=== PATIENT | female | born 1965 | race Caucasian/White ===

== ENCOUNTER → 2023-06-20 06:41 | Outpatient (REF) | payer BC, SELFPAY | LOC: HWRAD 06:41 | PROVIDERS: ATTENDING PHYSICIAN Family Medicine | DX: R16.0 Hepatomegaly, not elsewhere classified (principal) | CPT/HCPCS: 76700 ==

== ENCOUNTER → 2024-01-16 15:04 | Outpatient (REF) | payer BC, SELFPAY | LOC: WDC 15:04 | PROVIDERS: ATTENDING PHYSICIAN Family Medicine | DX: Z12.31 Encounter for screening mammogram for malignant neoplasm of breast (principal) | CPT/HCPCS: 77063; 77067 ==

== ENCOUNTER → 2024-05-28 07:25 | Outpatient (REF) | payer BC, SELFPAY | LOC: RAD 07:25 | PROVIDERS: ATTENDING PHYSICIAN Family Medicine; OTHER PHYSICIAN Internal Medicine Gastroenterology | DX: R10.10 Upper abdominal pain, unspecified (principal) | CPT/HCPCS: 78227; A9537; J2805 ==

== ENCOUNTER 2024-12-07 18:07 | Inpatient (IN) | payer BC, SELFPAY ==
[2024-12-07 13:09] VITALS: BP 182/107
[2024-12-07 13:26] LABS: Hematocrit 32.9 % (37.0-47.0); Hemoglobin 10.5 g/dL (12.0-16.0); Mean Corp Hgb Conc. 31.9 g/dL (33.0-37.0); Mean Corpuscular Volume 74.1 fL (81.0-99.0); Nucleated Red Blood Cells % 0 %; Platelet Count 409 10^3/uL (130-400); Red Cell Dist. Width 16.4 % (11.5-14.5)
[2024-12-07 13:41] LABS: ALT (SGPT) 31 U/L (0-35); AST (SGOT) 48 U/L (14-36); Albumin 4.5 g/dl (3.5-5.0); Alkaline Phosphatase 131 U/L (38-126); Blood Urea Nitrogen 11 mg/dl (7-17); Calcium 8.6 mg/dl (8.4-10.2); Carbon Dioxide 19 mmol/L (22-30); Chloride 94 mmol/L (98-107); Glucose 96 mg/dl (70-99); Lipase 200 U/L (23-300); Potassium 4.1 mmol/L (3.5-5.1); Sodium 126 mmol/L (135-145); Total Protein 7.6 g/dl (6.3-8.2); eGFR > 60.00
[2024-12-07 13:52] LABS: Troponin I < 0.012 ng/ml
--- NOTE | 2024-12-07 14:10 | ED.GENMED ---
History of Present Illness
General
Chief Complaint: Chest Pain
Time Seen by Provider: 12/07/24 14:10
History of Present Illness
History of Present Illness:
FOCUSED PAST MEDICAL HISTORY
- Alcoholism, has had PE in the past
REVIEW OF OLD RECORDS
- The patient was seen here 2008 with a head injury
Note:
CHIEF COMPLAINT(S)
Chest pain and shortness of breath.
HISTORY OF PRESENT ILLNESS
The patient is a 59-year-old female with a history of alcohol use disorder who presented to the emergency room with complaints of chest pain and difficulty breathing. The chest pain, described as a 'pressure,' began approximately three hours prior
to the visit. The patient also reports feeling confused, which she attributes to her current state. She describes a significant relapse in alcohol use over the past month, consuming a large quantity of alcohol daily, including beer and wine. On the
day of presentation, she consumed three glasses of wine.
She denies similar episodes in the past, aside from anxiety attacks, and asserts that this episode is more severe. The patient is currently experiencing these symptoms, more notably the feeling of breathlessness, despite normal oxygen saturation
levels. She also mentions swelling in her legs which she manages with support stockings and acknowledges having been diagnosed with lymphedema. There is no diagnosis of heart failure.
The patients medical history includes a hospitalization in 2003 for a pulmonary issue involving lung surgery and a subsequent diagnosis of a blood clot. She notes that this current episode does not resemble her previous experience with blood clots
or collapsed lung.
ADDITIONAL HISTORY OBTAINED FROM SOURCES OTHER THAN THE PATIENT
According to the ER team, initial tests including EKG and cardiac biomarkers returned normal. However, the patients sodium level was noted to be low, at 126 mmol/L.
PAST MEDICAL AND SURIGICAL HISTORY
- Alcohol use disorder, currently relapsed.
- Lymphedema.
- History of blood clot and lung surgery (2003).
CHRONIC MEDICAL CONDITIONS SIGNIFICANTLY AFFECTING CARE
- Alcohol use disorder.
- Lymphedema.
SOCIAL DETERMINANTS AFFECTING HEALTH
The patient reports a relapse in alcohol use, consuming large amounts daily for the past month.
SOCIAL HISTORY
Alcohol: The patient is a recovering alcoholic with a recent relapse, consuming significant amounts of alcohol daily.
REVIEW OF SYSTEMS
- Cardiovascular: Chest pain described as pressure, no history of heart failure.
- Respiratory: Difficulty breathing, normal oxygen saturation, history of lung issues.
- Neurological: Confusion, attributed to alcohol use relapse.
- Extremities: Leg swelling, managed with support hose.
PHYSICAL EXAM
General: Alert, no acute distress. Initial blood pressure is hypertensive
Skin: Warm, dry.
Head: Normocephalic, atraumatic.
Neck: Supple, trachea midline.
Eye, ears, nose, mouth and throat: Oral mucosa moist.
Cardiovascular: Normal peripheral perfusion, No edema.
Respiratory: Respirations are non-labored.
Gastrointestinal: Abdomen nondistended.
Back: Normal range of motion, Normal alignment.
Musculoskeletal: She is wearing compression stockings to the lower extremities and has evidence of lymphedema
Neurological: Alert and oriented to person, place, time, and situation, No focal neurological deficit observed.
Psychiatric: Cooperative, but appears somewhat anxious
PROBLEM LIST
Acute Problems:
- Chest pain
- Shortness of breath
- Low sodium level (Hyponatremia)
Chronic Problems:
- Alcohol use disorder
- Lymphedema
PLAN
- Administer Valium for anxiety.
- Obtain a urine sample to analyze chemical composition related to low sodium levels.
- Initiate IV fluids for potential dehydration.
- Repeat cardiac blood tests.
- Monitor cardiac status.
- Consider a CT scan of the lungs due to history and current symptoms.
- Encourage the patient to provide a urine sample for further evaluation.
DIFFERENTIAL DIAGNOSIS
The Differential Diagnosis includes, in no particular order and is not limited to:
- Acute coronary syndrome
- Pulmonary embolism
- Alcohol withdrawal syndrome
- Heart failure
- Hyponatremia-induced confusion
- Anxiety disorder
- Pneumonia
- Hyperventilation syndrome
- Panic attack
- Gastroesophageal reflux disease (GERD)
RADIOLOGY
- CTA obtained and is negative for PE
EKG
- Sinus 92, leftward axis deviation, no acute ST abnormality, no change from 06/22/2004
LABS
- White count 9.4, hemoglobin 10.5, platelets 409, sodium 126, bicarb 19, initial troponin negative
UPDATE
-SUMMARY OF ENCOUNTER
The patient, a 59-year-old female with a history of alcohol use disorder, presented to the emergency department with chest pain and shortness of breath. Upon evaluation, lab results indicated low sodium levels at 126 mmol/L, which may contribute to
the patients feelings of confusion. The patient reported increased alcohol consumption, which can lead to hyponatremia. Normal cardiac tests and a CT scan excluded the presence of any acute cardiac events or blood clots.
DISPOSITION
Admit.
ASSESSMENT
The patients low sodium levels are likely due to excessive alcohol consumption, leading to confusion and necessitating hospital admission for further management of hyponatremia.
PLAN
Plan to admit the patient for further evaluation and management of low sodium levels. Continue monitoring and provide appropriate treatment for hyponatremia.
INDEPENDENT REVIEW OF LABS AND INTERPRETATION OF TESTS
My independent review of cardiac tests is normal. My independent review of sodium levels is low at 126 mmol/L, indicating hyponatremia.
MEDICAL DECISION MAKING
-Complexity of Data Reviewed: Chronic conditions affecting care include alcohol use disorder and lymphedema. Differential diagnosis includes acute coronary syndrome, pulmonary embolism, alcohol withdrawal syndrome, hyponatremia-induced confusion,
anxiety disorder, and other potential causes of confusion and shortness of breath.
-Data:
Category 1: Clinical information obtained from an independent historian.
Category 3: Discussion of management with other physician regarding admission for low sodium management.
-Risk: Consideration of Admission/Observation due to low sodium levels and associated confusion related to excessive alcohol consumption.
DIAGNOSIS
Hyponatremia (ICD-10: E87.1). Alcohol use disorder, currently relapsed (ICD-10: F10.20).
Beer potomania
Phy Exam
Physical Exam
Physical Exam:
See HPI
Scores
Heart Score for Chest Pain Patients
STEMI patient?: Not applicable
Course
Orders/Labs/Results
Orders:
Orders
12/07/24 13:04
ECG [Electrocardiogram (*1)] Urgent
Reason for Study: Chest Pain
EKG- Treatment ONCE
12/07/24 13:15
Alcohol Urgent
Complete Blood Count/With Diff Urgent
Comprehensive Metabolic Panel Urgent
Lipase Urgent
Serum Osmolality Urgent
Comment: ADD ON
Troponin I Urgent
12/07/24 14:10
Add On- LAB Urgent
Tests Added?: alcohol
12/07/24 14:11
Add On- LAB Urgent
Tests Added?: osm
12/07/24 14:19
EKG- Treatment ONCE
diazePAM [Valium Injection] 5 mg IV NOW STA
12/07/24 14:20
CT Chest PE Study Urgent
Comment:
Reason For Exam: cp sob prior PE
12/07/24 14:23
0.9% Sodium Chloride 500 ml [Nss] 500 ml IV BOLUS
12/07/24 14:36
Osmolality, Random Urine Urgent
Date Specimen was Collected: 12/07/24
Time Specimen was Collected: 14:34
Urine Sodium Urgent
Date Specimen was Collected: 12/07/24
Time Specimen was Collected: 14:34
12/07/24 15:28
Diphenhydramine [Benadryl] 25 mg IV NOW STA
Ketorolac [Toradol] 15 mg IV NOW STA
Metoclopramide [Reglan] 10 mg IV NOW STA
12/07/24 16:15
Electrocardiogram (*1) Urgent
Reason for Study: Chest Pain
12/07/24 16:17
Troponin I Urgent
12/07/24 17:04
diazePAM [Valium Injection] 5 mg IV NOW STA
Abnormal Lab Results
12/07/24 12/07/24
13:15 14:36
Hgb 10.5 L g/dL
(12.0-16.0)
Hct 32.9 L %
(37.0-47.0)
MCV 74.1 L fL
(81.0-99.0)
MCH 23.6 L pg
(27.0-31.0)
MCHC 31.9 L g/dL
(33.0-37.0)
RDW 16.4 H %
(11.5-14.5)
Plt Count 409 H 10^3/uL
(130-400)
Absolute Neuts (auto) 7.9 H 10^3/uL
(1.4-6.5)
Absolute Lymphs (auto) 1.0 L 10^3/uL
(1.2-3.4)
Neutrophils % 84.2 H %
(42.2-75.2)
Lymphocytes % 10.6 L %
(20.5-51.1)
Sodium 126 L mmol/L
(135-145)
Chloride 94 L mmol/L
(98-107)
Carbon Dioxide 19 L mmol/L
(22-30)
AST 48 H U/L
(14-36)
Alkaline Phosphatase 131 H U/L
(38-126)
Urine Osmolality 77 L mOsm/kg
(300-900)
Urine Sodium 12 L mmol/L
(30-90)
12/07/24 13:15
12/07/24 13:15
Vital Signs
Initial and Last Documented VS:
Initial Vital Signs
Temp Pulse Resp BP Pulse Ox
36.4 C 84 18 182/107 97
12/07/24 13:09 12/07/24 13:09 12/07/24 13:09 12/07/24 13:09 12/07/24 13:09
Last Documented Vital Signs
Temp Pulse Resp BP Pulse Ox
37.2 C 92 19 149/89 94
12/07/24 14:26 12/07/24 15:15 12/07/24 15:15 12/07/24 14:26 12/07/24 15:15
*Pulse Oximetry
SaO2: 97
Oxygen Mode of Delivery: Room air
Patient hypoxic: no
*Critical Care Note
Total Time (30-74mins, 75-104mins- exclusive of procedures): Not Applicable
ED Attending Note
-
Portions of this chart may have been created with voice recognition software.� Occasional wrong word or��sound alike� substitutions may have occurred due to the inherent limitations of voice recognition software.
Discharge Plan
Departure
Referrals:
Indiana Olsen MD [Family Provider, Family Practice]
Interventions
Interventions:
*Risk Screen - Suicide Last Done: 12/07/24 13:09
*General Assessment Last Done: 12/07/24 13:09
*Neglect/Abuse Screening Last Done: 12/07/24 14:29
*ED- Fall Risk Assessment Last Done: 12/07/24 14:29
*ED COVID-19 Vaccine History Last Done: 12/07/24 13:09
*ED Influenza Vaccine History Last Done: 12/07/24 13:09
Discharge Date and Time
Print Language: SOUTH AFR[place]
[2024-12-07 14:19] VITALS: BMI 47.5
[2024-12-07 14:26] VITALS: BP 149/89
[2024-12-07] MEDS: NSS 500 IV (14:37)
[2024-12-07] MEDS: VALIUM INJECTION 5 MG IV ×2 (14:37→17:19)
[2024-12-07] MEDS: REGLAN 10 MG IV (16:11)
[2024-12-07] MEDS: TORADOL 15 MG IV (16:11)
[2024-12-07] MEDS: BENADRYL 25 MG IV (16:11)
[2024-12-07 16:29] VITALS: BP 155/82
[2024-12-07 17:03] LABS: Troponin I < 0.012 ng/ml
--- NOTE | 2024-12-07 17:23 | HPS.HSE ---
Family Physician
-
Family Physician: Indiana Olsen MD
Chief Complaint
-
Chest pain
History of Present Illness
Patient is 59 years old with history of alcohol use who presented to the ER with chest pain and shortness of breath.
Patient with history of daily alcohol use, currently she consume 2 cases of beer daily (24 Bottles), started having chest pain which she described as chest pressure, midsternal, no radiation, 3 hours before ER visit, also feeling confused.
Patient with significant alcohol use relapse for the last 1 month.
Patient denies any recent fever or chills, no recent cardiac history, no smoking.
Father had coronary artery disease but he was heavy smoking, mother diagnosed with congestive heart failure.
Patient denies any abdominal pain, no nausea or vomiting, no constipation or diarrhea.
Patient noted to have hyponatremia at 126,, negative troponin x 2.
CTA chest showed:
Mild to moderate respiratory motion artifact limiting evaluation of the inferior segmental and subsegmental pulmonary arteries. Given this limitation, there is no evidence for pulmonary embolism.
Calcified mass within the medial aspect of the right lower lobe of the lung, as described above. This is without significant interval change in size dating back to CT examination 2006, reassuring that this is a benign calcified pulmonary mass.
There are 2 splenic artery aneurysms in the left upper quadrant. The largest of these has diameter of 2.1 cm. Follow-up CT angiography of the abdomen with attention to the splenic artery is recommended in one year.
Focal pleural plaque involving the posterior aspect of the right lower hemithorax, slightly increasing since examination in 2006. With minimal enlargement over a timeframe of 18 years, this very likely represents a benign pleural plaque.
Patient will be admitted under hospitalist service.
Medical History
Past Medical History
Past Medical History: Reports Hypothyroidism, Psychiatric and Other
Additional Past Medical History:
- Alcohol use disorder.
- Lymphedema.
- History of blood clot and lung surgery (2003).
Past Surgical History: Reports Other
Additional Past Surgical History:
lung surgery (2003).
Gastric bypass surgery 2002
Social History
Tobacco: Non-smoker
Alcohol: Daily
Living: Alone
Family History
Family History: CAD (Father) and Other (Congestive heart failure-mother)
Allergies / Home Medications
Allergies reflects when Allergies were last updated in [employer].
Home Medications with original date entered in [employer]
Allergy/Medication List:
Allergies
Allergy/AdvReac Type Severity Reaction Status Date / Time
Sulfa (Sulfonamide Allergy Unknown Verified 12/07/24 13:12
Antibiotics)
sulfamethoxazole Allergy Unknown Verified 12/07/24 13:12
trimethoprim Allergy Unknown Verified 12/07/24 13:12
Home medications:
Zoloft 100 mg daily.
Abilify 10 mg daily.
Levothyroxine 88 mcg daily.
Multivitamins daily
Review of Systems
-
A 12 point ROS was completed and negative except as noted: Yes
Constitutional: Reports Fatigue; Denies Fever, Weight Gain, Weight Loss or Sleep Disturbance
EENT: Denies Tearing, Sore Throat, Mouth Pain, Mouth Swelling or Runny Nose
Respiratory: Reports Trouble Breathing; Denies Cough or Hemoptysis
Cardiac: Reports Chest Pain; Denies Diaphoresis, Palpitations or Syncope
Abdomen/GI: Denies Abdominal Pain, Nausea, Vomiting, Diarrhea, Constipated, Bloody Stools or Black Stools
: Denies Dysuria, Frequency, Flank Pain, Incontinence, Difficulty Voiding, Urgency, Bleeding or Dark Urine
Musculoskeletal: Denies Joint Pain, Joint Swelling, Muscle Pain, Muscle Stiffness or Edema
Skin: Denies Itching or Rash
Neurological: Denies Dizzy, Headache, Weakness or Numbness
Endocrine: Denies Polyuria, Polydipsia or Temp Intolerance
Hematologic/Lymphatic: Denies Bleeding, Swollen Glands or Bruising
Psych: Reports Calm; Denies Depression, Anxiety or Panic Disorder
Physical Exam
Vital Signs
Vital Signs
Temp Pulse Resp BP Pulse Ox
99 F 92 19 149/89 94
12/07/24 14:26 12/07/24 15:15 12/07/24 15:15 12/07/24 14:26 12/07/24 15:15
Physical Exam
General: Well Developed, Comfortable, Appears in Distress and Good Appetite; No Pain, Chills or Sweats
HEENT: NormoCephalic, Moist mucous membranes, Atraumatic, Good Dentition, PERRLA, Nose Appears Normal and Ears Appear Normal
Respiratory: Clear
Cardiac: S1/S2 and Regular Rhythm
Breast: Deferred by me
GI: Soft, Non Tender, Non Distended and Normal Bowel Sounds
Genito-urinary: Deferred by me
Musculoskeletal: No Clubbing, No Cyanosis and No Edema
Skin: Warm; No Rash, Jaundice, Ulcers, Lesions or Decubitus Ulcers
Neuro: Awake, Alert, Oriented, AO x 3, No Motor Deficits, Nonfocal/grossly intact, Cranial Nerves Intact and Other (Fine tremor)
Hematologic/Lymphatic: No Lymphadenopathy
Psych: Calm
Laboratory Results
-
12/07/24 13:15
12/07/24 13:15
Laboratory Results
Total Bilirubin 0.5 mg/dl (0.2-1.3) 12/07/24 13:15
AST 48 U/L (14-36) H 12/07/24 13:15
ALT 31 U/L (0-35) 12/07/24 13:15
Alkaline Phosphatase 131 U/L (38-126) H 12/07/24 13:15
Troponin I < 0.012 ng/ml 12/07/24 16:17
Lipase 200 U/L (23-300) 12/07/24 13:15
Data Reviewed
-
Diagnostic Radiology: Report Reviewed by me
CT Scan: Report Reviewed by me
Medical Tests (Nuc Med, Echo, EKG etc): Report Reviewed by me
Lab Data: Labs Reviewed by me
Old Records: Reviewed
Impression/Plan
-
Impression:
Patient is 59 years old with history of alcohol use who presented to the ER with chest pain and shortness of breath.
Patient with history of daily alcohol use, currently she consume 2 cases of beer daily (24 Bottles), started having chest pain which she described as chest pressure, midsternal, no radiation, 3 hours before ER visit, also feeling confused. Patient
with significant alcohol abuse history, relapsed for the last 1 month. no cardiac history, no smoking.
Father had coronary artery disease but he was heavy smoking, mother diagnosed with congestive heart failure.
Patient noted to have hyponatremia at 126,, negative troponin x 2.
CTA chest showed:
Mild to moderate respiratory motion artifact limiting evaluation of the inferior segmental and subsegmental pulmonary arteries. Given this limitation, there is no evidence for pulmonary embolism.
Calcified mass within the medial aspect of the right lower lobe of the lung, as described above. This is without significant interval change in size dating back to CT examination 2006, reassuring that this is a benign calcified pulmonary mass.
There are 2 splenic artery aneurysms in the left upper quadrant. The largest of these has diameter of 2.1 cm. Follow-up CT angiography of the abdomen with attention to the splenic artery is recommended in one year.
Focal pleural plaque involving the posterior aspect of the right lower hemithorax, slightly increasing since examination in 2006. With minimal enlargement over a timeframe of 18 years, this very likely represents a benign pleural plaque.
Patient admitted for hyponatremia, chest pain, alcohol withdrawal
Assessment/plan:
Chest pain R/O ACS
Patient presented to the ER with chest pain/shortness of breath.
Troponin came back at <0.012
EKG done in the ER shows no acute ischemic change
Will start baby aspirin, hold statin for elevated LFTs
Trend troponin
Check fasting lipid panel
Cardiology consult.
Alcohol abuse/withdrawal
Patient admitted drinking 2 dozens of beer daily.
Alcohol level 46
Fine tremors on physical exam.
IV fluid.
Thiamine/folic acid.
Ativan as needed.
Valium taper
Acute metabolic encephalopathy
UA pending.
Could be contributed by hyponatremia.
Less likely Warnicke encephalopathy
Started on thiamine
Hyponatremia
Possible beer Potomania
Fluid restriction.
Normal saline.
Repeat BMP in am
History of hypothyroidism
Continue levothyroxine
History of depression.
Continue Zoloft
Transaminitis
Alcohol pattern
Repeat LFTs in a.m.
Consider right upper quadrant ultrasound
Microcytic anemia
Monitor hemoglobin
Mild metabolic acidosis
Repeat lab in AM.
IV fluid
CODE STATUS: Full code
DVT prophylaxis: Lovenox
Diet: Regular diet-water restriction
Disposition: Admit
Total time spent on today's encounter was 75 minutes which included time spent in counseling the patient/family regarding diagnosis and treatment plan as listed above, goals of care, and symptom management. Case was discussed with nursing staff,
specialists, and care coordinators/case management. All labs and imaging personally reviewed by me. Remainder the time spent in detailed review of previous records, lab data, imaging, and other medical provider documentation.
--- NOTE | 2024-12-07 18:18 | CM ---
CM reviewed chart and met with pt bedside in ED. Pt lives alone in basement apartment.
Independent in ADLs, personal care and ambulation at baseline. No assistive devices.
Confirms prescription coverage.
No hx VN or SNF
PCP: Indiana Olsen
Pharmacy: [address]
Anticipate discharge home, CM will continue to follow for any discharge planning needs.
[2024-12-07 18:30] VITALS: BP 140/81
--- NOTE | 2024-12-07 19:35 | PTCARENOTE ---
Patient arrived to unit via stretcher and walked into room. AAOx3. No c/o pain or discomfort. Oriented to unit. Call [employer] within reach.
[2024-12-07 20:55] LABS: Troponin I < 0.012 ng/ml
--- NOTE | 2024-12-07 20:59 | PTCARENOTE ---
Rn flower stripper- Patient's admission assessment completed remotely via phone.
[2024-12-07] MEDS: LOVENOX 40 MG SC (21:24)
[2024-12-07] MEDS: FOLVITE 1 MG PO (21:24)
[2024-12-07] MEDS: PROTONIX 40 MG PO (21:24)
[2024-12-07] MEDS: NSS 1000 IV (21:26)
[2024-12-07] MEDS: ATIVAN 1 MG PO (22:18)
[2024-12-07 23:07] VITALS: BP 139/83
[2024-12-07] MEDS: THIAMINE INJECTION 200 MG IV (23:22)
[2024-12-08 03:14] VITALS: BP 148/69
[2024-12-08 05:12] VITALS: BMI 45.0
[2024-12-08 05:14] LABS: Hematocrit 31.0 % (37.0-47.0); Hemoglobin 9.8 g/dL (12.0-16.0); Mean Corp Hgb Conc. 31.6 g/dL (33.0-37.0); Mean Corpuscular Volume 75.1 fL (81.0-99.0); Platelet Count 367 10^3/uL (130-400); Red Cell Dist. Width 16.7 % (11.5-14.5)
[2024-12-08 05:29] LABS: ALT (SGPT) 26 U/L (0-35); AST (SGOT) 38 U/L (14-36); Albumin 3.7 g/dl (3.5-5.0); Alkaline Phosphatase 126 U/L (38-126); Blood Urea Nitrogen 8 mg/dl (7-17); Calcium 8.6 mg/dl (8.4-10.2); Carbon Dioxide 27 mmol/L (22-30); Chloride 107 mmol/L (98-107); Estimated Creatinine Clearance 122 ml/min; GGTP < 10 U/L (12-43); Glucose 91 mg/dl (70-99); Magnesium 2.0 mg/dl (1.6-2.3); Potassium 3.9 mmol/L (3.5-5.1); Sodium 138 mmol/L (135-145); Total Protein 6.4 g/dl (6.3-8.2); Very Low Density Lipoprotein 14 mg/dl (0-30); eGFR > 60.00
[2024-12-08 05:40] LABS: HDL Cholesterol 112 mg/dl; LDL Cholesterol, Calculated 31 mg/dl
[2024-12-08 05:47] LABS: Troponin I < 0.012 ng/ml
[2024-12-08] MEDS: SYNTHROID 88 MCG PO (05:56)
[2024-12-08 05:57] LABS: TSH 7.74 uIU/ml (0.47-4.68)
[2024-12-08 07:00] VITALS: BP 151/78
[2024-12-08 07:41] LABS: Urine Character Clear (Clear)
[2024-12-08] MEDS: ABILIFY 10 MG PO (08:05)
[2024-12-08] MEDS: ZOLOFT 100 MG PO (08:06)
[2024-12-08] MEDS: THIAMINE INJECTION 200 MG IV ×2 (08:06→15:50)
[2024-12-08] MEDS: PROTONIX 40 MG PO (08:06)
[2024-12-08] MEDS: FOLVITE 1 MG PO (08:06)
[2024-12-08] MEDS: NSS 1000 IV (08:07)
[2024-12-08 08:10] LABS: Urine Red Blood Cell 0-2 /HPF (0-2)
[2024-12-08 08:13] LABS: Urine Urothelial Cell 0-2 /LPF (FEW)
--- NOTE | 2024-12-08 09:06 | CON.CAR ---
Addendum entered and electronically signed by Joaquim Neumann MD 12/08/24 14:58:
I saw and examined the patient.
The Joint Terminal Attack Controller's note was reviewed and I agree with the note.
Comment:
GEN: No distress, awake, Ox3
HEENT: supple, anicteric, mmm
LUNGS: CTA, no wheezes/rales
CV: Reg, S1/S2, 1/6 syst LSB, no gallop
ABD: soft, BS+, NT/ND
EXT: No edema
NEURO: Gross non-focal
SKIN: No rash
Plan:
59-year-old female with past medical history of alcohol abuse, lymphedema, previous pulmonary embolism, obesity gastric bypass surgery presents with chest pains and shortness of breath. Patient states she had some chest pains yesterday while at
home with some dyspnea on exertion. The pain was mild to moderate in severity and she became actually send came to the emergency room. EKG was overall unremarkable and cardiac troponins were normal. proBNP was mildly elevated at 1190. She
admitts to drinking approximately [address] scan of the chest had no clear pulmonary embolism.
The etiology of her chest pains remains unclear. She was also found to be significantly hyponatremic with this has improved. We will start with an echocardiogram to evaluate her LV and RV function.
Her proBNP is mildly elevated and is possible she has some mild volume overload/acute heart failure with preserved ejection fraction. We will give her a dose of Lasix 20 mg IV today and follow her clinically.
Would consider consider stress testing as outpatient.
Will need to follow her sodium with IV Lasix.
We had a lengthy discussion about the importance of stopping alcohol abuse.
Of note, she also has a microcytic anemia. Will defer to primary team regarding this.
Original Note:
Consultation
Consultation Request
Date/Time Consultation Requested: 12/07/2024 at 1941
Date/Time Consultation Performed: 12/08/2024 at 0935
Requesting Provider: Dr. Pa
Performing Provider: Dr. Neumann
Reason for Consultation: Chest pain, SOB
Medical History
-
History of Present Illness:
Patient came to the ER yesterday with chest pain, SOB and anxiety and was admitted with hyponatremia and cardiology is now consulted. Patient says that for 3 hours prior to coming to the ER yesterday she had chest pressure and SOB. Patient reports
she had a similar episode a month ago that was evaluated at [facility] when she was discharged to home from their ER. Patient felt that her episode yesterday was more intense and lasted longer than so she came to [facility] ER. Patient was found to be
hyponatremic. ECG without acute ischemic change and her troponin has been undetectable. Patient says she does not follow with a cement mason helper, but she was seen by Dr. Hinkle here in 2003 when she was admitted with recurrent right pleural effusion
and had pleurodesis. Patient also had a PE at that time and was on warfarin. Patient was not able to recall a lot of those details. Patient later had gastric bypass in 2007 and then abdominoplasty, but reports that she has gained back at least 100
lbs of the 200 lbs that she lost back in 2007. Patient has had issues with ETOH use disorder, but was sober for years until she relapsed a month ago. She is now drinking a case of beer (24) a day plus wine, but denies illicit drug use. She is still
working, but reports missing work and having to leave work early due to intermittent chest pressure and DEAN over the last few weeks, but denies orthopnea or increased LE edema. No resting chest pain.
PMH:
EtOH use disorder, severe
Obese s/p gastric bypass surgery 2007
Lymphedema
h/o PE and possible pulmonary infarct treated with warfarin 05/2004
Recurrent right-sided pleural effusion leading to pleurodesis in 2004
Past Medical History
Past Medical History: Other (In HPI)
Past Surgical History: and Other (Gastric bypass 2007, pleurodesis for recurrent PTX)
Social History
Tobacco: Non-Smoker
Alcohol: Other (Patient reports previous severe EtOH use disorder, but was sober and relapsed within the last month)
Drug: None (Denies illicit drug use)
Personal:
Living: Alone
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
Family History
Family History: CAD (Father with PA in his 50s) and Cancer (Daughter with thyroid cancer)
Allergies / Home Medications
Allergy/AdvReac Type Severity Reaction Status Date / Time
Sulfa (Sulfonamide Allergy Unknown Verified 12/07/24 13:12
Antibiotics)
sulfamethoxazole Allergy Unknown Verified 12/07/24 13:12
trimethoprim Allergy Unknown Verified 12/07/24 13:12
�Medication �Instructions �Recorded �Confirmed �Type
Bariatric Melts Bariatric surgery 12/08/24 History
Bariatric Vitamins Bariatric surgery 12/08/24 History
Iron Supplement 12/08/24 History
Magnesium Supplement 12/08/24 History
Tumeric Supplement 12/08/24 History
milk thistle Supplement 12/08/24 History
Review of Systems
-
History Source: Patient
All other systems: Negative unless noted
Physical Exam
Vital Signs
Temp Pulse Resp BP Pulse Ox
98.1 F 73 18 151/78 97
12/08/24 07:00 12/08/24 07:00 12/08/24 07:00 12/08/24 07:00 12/08/24 07:00
GEN: NAD, AAO x 3
HEENT: EOMI, MMM
LUNGS: RA. CTA B/L, no wheeze
CV: Reg, S1/S2, 1/6 syst LSB
ABD: soft, BS+, NT, ND
EXT: +2 nonpitting B/L LE edema
NEURO: Gross non-focal
SKIN: No rash
Lab Results
12/08/24 05:08
12/08/24 04:57
Troponin I < 0.012 ng/ml 12/08/24 05:05
Xyr-O-Fvtecsbtpnq Pept 1190 pg/ml 12/08/24 04:57
Impression / Plan
-
PCP: Dr. Indiana Olsen at [facility] [place]
Cardiology: None prior to admission
Impression:
Admitted with chest pain and hyponatremia 12/07/2024
Hyponatremia
Chest pain
Elevated proBNP
EtOH use disorder, severe
Obese s/p gastric bypass surgery 2007
Lymphedema
h/o PE treated with warfarin 05/2004
Recurrent right-sided pleural effusion leading to pleurodesis in 2004
Persantine nuclear stress test 03/30/2004: Small, fixed apical and anteroseptal defect that is most likely soft tissue attenuation, EF 71%
Echo 10/19/2003: Technically very limited due to body habitus, EF 60%, no significant valvular disease
Echo 12/08/2024: Report pending
Plan:
-Patient came to the ER yesterday with chest pain, SOB and anxiety and was admitted with hyponatremia and cardiology is now consulted. Patient says that for 3 hours prior to coming to the ER yesterday she had chest pressure and SOB. Patient
reports she had a similar episode a month ago that was evaluated at [facility] when she was discharged to home from their ER. Patient felt that her episode yesterday was more intense and lasted longer than so she came to [facility] ER. Patient was found to be
hyponatremic. ECG without acute ischemic change and her troponin has been undetectable. Patient says she does not follow with a cement mason helper, but she was seen by Dr. Hinkle here in 2004 when she was admitted with recurrent right pleural effusion
and had pleurodesis. Patient also had a PE at that time and was on warfarin. Patient was not able to recall a lot of those details. Patient later had gastric bypass in 2007 and then abdominoplasty, but reports that she has gained back at least 100
lbs of the 200 lbs that she lost back in 2007. Patient has had issues with ETOH use disorder, but was sober for years until she relapsed a month ago. She is now drinking a case of beer (24) a day plus wine, but denies illicit drug use. She is still
working, but reports missing work and having to leave work early due to intermittent chest pressure and DEAN over the last few weeks, but denies orthopnea or increased LE edema. No resting chest pain.
-ECG reviewed by me is SR without acute ST changes
-Troponin serially undetectable
-Patient reporting 3+ hours of chest pain yesterday along with symptoms of intermittent chest pain and DEAN with activity over the weeks prior to admission. Given stable ECG and troponin we will check echo and plan on outpatient ischemic evaluation.
-proBNP is elevated at 1190, but CT chest without obvious pulmonary edema. Will try dose of Lasix 40 mg IV x 1 now, ordered by me.
-Check echo, ordered by me await results
-Patient was previously followed by Dr. Hinkle of the other cardiology group in 2003 when she was admitted with recurrent pleural effusion, pleurodesis and had PE.
[2024-12-08] MEDS: LOW STRENGTH ASPIRIN 81 MG PO (09:49)
[2024-12-08] MEDS: ATARAX 25 MG PO ×2 (09:54→21:51)
[2024-12-08] MEDS: LOW STRENGTH ASPIRIN PO (09:54)
[2024-12-08] MEDS: LASIX 40 MG IV (11:34)
[2024-12-08 11:55] VITALS: BP 170/92
[2024-12-08 13:00] LABS: Troponin I < 0.012 ng/ml
--- NOTE | 2024-12-08 13:01 | W.PN.HOSP.TC ---
Today's Communication/Plan
-
Echo pending
Assessment / Plan
Assessment / Plan
Impression:
Patient is 59 years old with history of alcohol use who presented to the ER with chest pain and shortness of breath.
Patient with history of daily alcohol use, currently she consume 2 cases of beer daily (24 Bottles), started having chest pain which she described as chest pressure, midsternal, no radiation, 3 hours before ER visit, also feeling confused. Patient
with significant alcohol abuse history, relapsed for the last 1 month. no cardiac history, no smoking.
Father had coronary artery disease but he was heavy smoking, mother diagnosed with congestive heart failure.
Patient noted to have hyponatremia at 126,, negative troponin x 2.
CTA chest showed:
Mild to moderate respiratory motion artifact limiting evaluation of the inferior segmental and subsegmental pulmonary arteries. Given this limitation, there is no evidence for pulmonary embolism.
Calcified mass within the medial aspect of the right lower lobe of the lung, as described above. This is without significant interval change in size dating back to CT examination 2006, reassuring that this is a benign calcified pulmonary mass.
There are 2 splenic artery aneurysms in the left upper quadrant. The largest of these has diameter of 2.1 cm. Follow-up CT angiography of the abdomen with attention to the splenic artery is recommended in one year.
Focal pleural plaque involving the posterior aspect of the right lower hemithorax, slightly increasing since examination in 2006. With minimal enlargement over a timeframe of 18 years, this very likely represents a benign pleural plaque.
Patient admitted for hyponatremia, chest pain, alcohol withdrawal.
Seen by cardiology, echocardiogram pending.
Hyponatremia improved.
Assessment/plan:
Chest pain R/O ACS
Patient presented to the ER with chest pain/shortness of breath.
Troponin came back at <0.012
EKG done in the ER shows no acute ischemic change
Started baby aspirin, hold statin for elevated LFTs
Trend troponin
Check fasting lipid panel
Cardiology consult.
12/08
Seen by cardiology.
Troponin remains negative.
Currently chest pain-free.
Echocardiogram pending
Alcohol abuse/withdrawal
Patient admitted drinking 2 dozens of beer daily.
Alcohol level 46
Fine tremors on physical exam.
IV fluid.
Thiamine/folic acid.
Ativan as needed.
Acute metabolic encephalopathy
UA, no sign of UTI
Could be contributed by hyponatremia.
Improved
Less likely Warnicke encephalopathy
Started on thiamine
Hyponatremia
Improved.
Discontinue IV fluid
History of hypothyroidism
Continue levothyroxine
History of depression.
Continue Zoloft
Transaminitis
Alcohol pattern
Improved
Microcytic anemia
Monitor hemoglobin
Mild metabolic acidosis
Improved
CODE STATUS: Full code
DVT prophylaxis: Lovenox
Diet: Regular diet-water restriction
Disposition: Echo pending
Total time spent on today's encounter was 52 minutes which included time spent in counseling the patient/family regarding diagnosis and treatment plan as listed above, goals of care, and symptom management. Case was discussed with nursing staff,
specialists, and care coordinators/case management. All labs and imaging personally reviewed by me. Remainder the time spent in detailed review of previous records, lab data, imaging, and other medical provider documentation.
Anticipated Discharge: Within 24 hours
Subjective/Interval History
-
Date of Service: December 08, 2024
Patient seen and examined at bedside, sitting in the chair, overall chest pain improved, still with anxiety, ordered Vistaril.
Seen by cardiology, echocardiogram pending.
Objective Data
-
Labs:
Laboratory Results
12/08/24 12/08/24
04:57 05:08
WBC 5.3
Hgb 9.8 L
Hct 31.0 L
Plt Count 367
Sodium 138 D
Potassium 3.9
Chloride 107
Carbon Dioxide 27
BUN 8
Creatinine 0.5 L
Glucose 91
Calcium 8.6
Total Bilirubin 1.1
AST 38 H
ALT 26
Alkaline Phosphatase 126
Vital Signs:
Vital Signs
Temp Pulse Resp BP Pulse Ox
98.4 F 87 18 170/92 95
12/08/24 11:55 12/08/24 11:55 12/08/24 11:55 12/08/24 11:55 12/08/24 11:55
I&O
12/07/24 12/08/24 12/09/24
06:59 06:59 06:59
Intake Total 480 / 480 720 / 720
Output Total 1200 / 1200
Balance 480 / 480 -480 / -480
Physical Exam
-
General: Well Developed, Well Nourished, No Apparent Distress and Comfortable
HEENT: Normocephalic, Atraumatic, Moist Mucous Membranes, No Ptosis, PERRLA and Nose Appears Normal
Respiratory: Clear to Auscultation and Non Labored Respirations
Cardiac: Regular Rhythm and S1/S2
Breast: Deferred by me
GI: Soft, Nontender, Nondistended and Normal Bowel Sounds
Genito-urinary: No Costovertebral Tender
Musculoskeletal: No Clubbing, No Cyanosis and No Edema
Skin: Warm
Neuro: Awake, Alert, Oriented, AO x 3 and No Motor Deficits
Psych: Calm
Data Reviewed
-
Diagnostic Radiology: Image personally visualized and interpreted and Report Reviewed by me
CT Scan: Image personally visualized and interpreted and Report Reviewed by me
Ultrasound: Image personally visualized and interpreted and Report Reviewed by me
MRI: Image personally visualized and interpreted and Report Reviewed by me
Medical Tests (Nuc Med, Echo etc): Image personally visualized and interpreted and Report Reviewed by me
Labs: Labs Reviewed by me
Old Records: Reviewed
--- NOTE | 2024-12-08 13:08 | CM ---
Chart reviewed and director of casework department received a consult for substance use manager infrastructure met with patient and reviewed options and patient is agreeable to a referral to [facility], director of casework department contacted [facility] and they will meet with patient today.
Plan; Referral sent to [facility].
[2024-12-08] MEDS: LOVENOX 40 MG SC (15:50)
[2024-12-08 16:05] VITALS: BP 136/74
[2024-12-08 19:44] VITALS: BP 142/68
[2024-12-08 23:50] VITALS: BP 146/74
[2024-12-09] MEDS: THIAMINE INJECTION 200 MG IV ×2 (00:05→09:45)
[2024-12-09 03:04] VITALS: BP 136/70
[2024-12-09] MEDS: SYNTHROID 88 MCG PO (05:14)
[2024-12-09 07:00] VITALS: BP 158/79
[2024-12-09 07:13] LABS: Hematocrit 32.9 % (37.0-47.0); Hemoglobin 10.4 g/dL (12.0-16.0); Mean Corp Hgb Conc. 31.6 g/dL (33.0-37.0); Mean Corpuscular Volume 78.3 fL (81.0-99.0); Platelet Count 376 10^3/uL (130-400); Red Cell Dist. Width 16.6 % (11.5-14.5)
[2024-12-09 07:21] LABS: Blood Urea Nitrogen 11 mg/dl (7-17); Calcium 8.8 mg/dl (8.4-10.2); Carbon Dioxide 29 mmol/L (22-30); Chloride 103 mmol/L (98-107); Estimated Creatinine Clearance 122 ml/min; Glucose 72 mg/dl (70-99); Potassium 3.7 mmol/L (3.5-5.1); Sodium 138 mmol/L (135-145); eGFR > 60.00
--- NOTE | 2024-12-09 09:03 | W.PN.CARDCBS ---
Addendum entered and electronically signed by Juwan Zamora MD 12/09/24 15:08:
59-year-old woman admitted with chest pain and hyponatremia, alcohol use disorder, history of gastric bypass, history of pulmonary embolism, recurrent right pleural effusions and pleurodesis
143/74, pulse 70, respiratory rate 18, afebrile, weight is 110 kg
Echo: EF 65-70%, mildly dilated left atrium, mild aortic stenosis, ECG sinus rhythm incomplete right bundle branch block,
Troponin negative x 2, proBNP 1190
Impression:
See below. Note below reviewed in detail and agree, unless otherwise specified.
Primary issue at present is alcohol use disorder and obesity, which are linked.
Okay for discharge from cardiac standpoint.
Outpatient follow-up has been arranged.
Original Note:
Today's Communication / Plan
-
check wt
outpt ischemic eval of CP
f/u CTA of splenic artery aneurysm 1 yr
Impression / Plan
-
PCP: Dr. Indiana Olsen at [facility] [place]
Cardiology: None prior to admission
Impression:
Admitted with chest pain and hyponatremia 12/07/2024
Hyponatremia
Chest pain
Elevated proBNP
EtOH use disorder, severe
Obese s/p gastric bypass surgery 2007
Lymphedema
h/o PE treated with warfarin 05/2004
Recurrent right-sided pleural effusion leading to pleurodesis in 2004
Persantine nuclear stress test 03/30/2004: Small, fixed apical and anteroseptal defect that is most likely soft tissue attenuation, EF 71%
Echo 10/19/2003: Technically very limited due to body habitus, EF 60%, no significant valvular disease
Echo 12/08/2024: nl LV/RV, EF 65-70%, mild peak/mean 31/18, DEE 1.5
Plan:
-Patient came to the ER 12/07/2024 with chest pain, SOB and anxiety and was admitted with hyponatremia and cardiology is now consulted. Patient says that for 3 hours prior to coming to the ER she had chest pressure and SOB. Patient reports she had
a similar episode a month ago that was evaluated at [facility] when she was discharged to home from their ER. Patient felt that her episode 12/07 was more intense and lasted longer than so she came to [facility] ER. Patient was found to be hyponatremic. ECG
without acute ischemic change and her troponin has been undetectable. Patient says she does not follow with a civil lawyer, but she was seen by Dr. Hinkle here in 2004 when she was admitted with recurrent right pleural effusion and had pleurodesis.
Patient also had a PE at that time and was on warfarin. Patient was not able to recall a lot of those details. Patient later had gastric bypass in 2007 and then abdominoplasty, but reports that she has gained back at least 100 lbs of the 200 lbs
that she lost back in 2007. Patient has had issues with ETOH use disorder, but was sober for years until she relapsed a month ago. She is now drinking a case of beer (24) a day plus wine, but denies illicit drug use. She is still working, but
reports missing work and having to leave work early due to intermittent chest pressure and DEAN over the last few weeks, but denies orthopnea or increased LE edema. No resting chest pain.
-ECG was without acute ST changes
-Troponin serially undetectable
-echo nl LV/RV fxn, mild
-consider outpt ischemic eval of CP/SOB
-telem personally reviewed: NSR 10 beat atrial run, occ bursts of ST to 120s
-proBNP is elevated at 1190, but CT chest without obvious pulmonary edema. rec'd Lasix 40 mg IV x 1 12/08. Wt today pending.
-CTA chest/abd/pelvis with 2 splenic artery aneurysms in the left upper quadrant. The largest of these has diameter of 2.1 cm, no change in size since 2006 but increase in peripheral calcification. Follow-up CT angiography of the abdomen with
attention to the splenic artery is recommended in one year.
-FLP: LDL 31, HDL 112, TG 72, tchol 157. She is not on statin
-Patient was previously followed by Dr. Hinkle of the other cardiology group in 2003 when she was admitted with recurrent pleural effusion, pleurodesis and had PE.
Progress Note - [employer]
Subjective
Date of Service: December 09, 2024
no recurrent CP
feels anxious
worried about splenic aneurysms seen on CTA
Objective
Labs:
12/09/24 06:23
12/09/24 06:23
Labs
Hgb 10.4 g/dL (12.0-16.0) L 12/09/24 06:23
Hct 32.9 % (37.0-47.0) L 12/09/24 06:23
Plt Count 376 10^3/uL (130-400) 12/09/24 06:23
Sodium 138 mmol/L (135-145) 12/09/24 06:23
Potassium 3.7 mmol/L (3.5-5.1) 12/09/24 06:23
BUN 11 mg/dl (7-17) 12/09/24 06:23
Creatinine 0.6 mg/dL (0.6-1.0) 12/09/24 06:23
Glucose 72 mg/dl (70-99) 12/09/24 06:23
Troponins
12/07/24 12/07/24 12/07/24
13:15 16:17 20:26
Troponin I < 0.012 < 0.012 < 0.012
12/08/24 12/08/24
05:05 11:29
Troponin I < 0.012 < 0.012
Vital Signs and I&O:
Vital Signs
Temp Pulse Resp BP Pulse Ox
98.1 F 81 18 158/79 96
12/09/24 07:00 12/09/24 07:00 12/09/24 07:00 12/09/24 07:00 12/09/24 07:00
Vital Signs
Temp Pulse Resp BP Pulse Ox
98.1 F 81 18 158/79 96
12/09/24 07:00 12/09/24 07:00 12/09/24 07:00 12/09/24 07:00 12/09/24 07:00
Intake & Output
12/07/24 12/08/24 12/09/24 12/10/24
06:59 06:59 06:59 06:59
Intake Total 480 / 480 2480 / 2480
Output Total 1999 / 1999
Balance 480 / 480 480 / 480
Physical Exam
Physical Exam
GEN: No distress, awake, Ox3
HEENT: supple, anicteric, mmm
LUNGS: CTA, no wheezes/rales
CV: Reg, S1/S2,no murmur
ABD: soft, BS+, NT/ND
EXT: trace B/L edema
NEURO: Gross non-focal
SKIN: No rash
[2024-12-09] MEDS: PROTONIX 40 MG PO (09:42)
[2024-12-09] MEDS: ABILIFY 10 MG PO (09:43)
[2024-12-09] MEDS: ZOLOFT 100 MG PO (09:43)
[2024-12-09] MEDS: FOLVITE 1 MG PO (09:43)
[2024-12-09] MEDS: LOW STRENGTH ASPIRIN 81 MG PO (09:56)
[2024-12-09 11:00] VITALS: BP 143/74
[2024-12-09 11:04] VITALS: BMI 44.5
--- NOTE | 2024-12-09 13:48 | CM ---
Chart reviewed and patient is for discharge to home today, patient has been set up with outpatient services from [facility].
Plan; Home no needs.
--- NOTE | 2024-12-09 13:49 | W.PN.HOSP.TC ---
Today's Communication/Plan
-
Discharge home today
Assessment / Plan
Assessment / Plan
Impression:
Patient is 59 years old with history of alcohol use who presented to the ER with chest pain and shortness of breath.
Patient with history of daily alcohol use, currently she consume 2 cases of beer daily (24 Bottles), started having chest pain which she described as chest pressure, midsternal, no radiation, 3 hours before ER visit, also feeling confused. Patient
with significant alcohol abuse history, relapsed for the last 1 month. no cardiac history, no smoking.
Father had coronary artery disease but he was heavy smoking, mother diagnosed with congestive heart failure.
Patient noted to have hyponatremia at 126,, negative troponin x 2.
CTA chest showed:
Mild to moderate respiratory motion artifact limiting evaluation of the inferior segmental and subsegmental pulmonary arteries. Given this limitation, there is no evidence for pulmonary embolism.
Calcified mass within the medial aspect of the right lower lobe of the lung, as described above. This is without significant interval change in size dating back to CT examination 2006, reassuring that this is a benign calcified pulmonary mass.
There are 2 splenic artery aneurysms in the left upper quadrant. The largest of these has diameter of 2.1 cm[address] Follow-up CT angiography of the abdomen with attention to the splenic artery is recommended in one year.
Focal pleural plaque involving the posterior aspect of the right lower hemithorax, slightly increasing since examination in 2006. With minimal enlargement over a timeframe of 18 years, this very likely represents a benign pleural plaque.
Patient admitted for hyponatremia, chest pain, alcohol withdrawal.
Seen by cardiology, received 1 dose of Lasix.
Echocardiogram shows:
1. Normal left ventricular size and function
2. Ejection fraction is 65-70% by volumetric assesment.
3. Right ventricular size and systolic function are within normal limits.
4. Indexed left atrial volume is mildly abnormal (35-41 ml/m2).
5. Mildly thickened trileaflet aortic valve with mild aortic stenosis - Peak gradient 31mmHg/Mean gradient 18mmHg - using an left ventricular outflow tract of 1.8cm the estimated aortic valve area is 1.5cm2.
6. Trace tricuspid regurgitation. Estimated pulmonary artery pressure of 34 mmHg assuming a right atrial pressure of 3 mmHg.
7. There are no prior studies available for comparison.
Patient will discharge home to follow-up with cardiology as outpatient for ischemic workup.
No need for diuretics at discharge.
Assessment/plan:
Chest pain R/O ACS
Patient presented to the ER with chest pain/shortness of breath.
Troponin came back at <0.012
EKG done in the ER shows no acute ischemic change
Started baby aspirin, hold statin for elevated LFTs
Trend troponin
Check fasting lipid panel
Cardiology consult.
12/08
Seen by cardiology.
Troponin remains negative.
Currently chest pain-free.
Received 1 dose of Lasix
Echocardiogram shows:
1. Normal left ventricular size and function
2. Ejection fraction is 65-70% by volumetric assesment.
3. Right ventricular size and systolic function are within normal limits.
4. Indexed left atrial volume is mildly abnormal (35-41 ml/m2).
5. Mildly thickened trileaflet aortic valve with mild aortic stenosis - Peak gradient 31mmHg/Mean gradient 18mmHg - using an left ventricular outflow tract of 1.8cm the estimated aortic valve area is 1.5cm2.
6. Trace tricuspid regurgitation. Estimated pulmonary artery pressure of 34 mmHg assuming a right atrial pressure of 3 mmHg.
7. There are no prior studies available for comparison.
12/09
Discharged off diuretics
Alcohol abuse/withdrawal
Patient admitted drinking 2 dozens of beer daily.
Alcohol level 46
Fine tremors on physical exam.
IV fluid.
Thiamine/folic acid.
Ativan as needed.
Splenic artery aneurysm.
Seen on CT scan.
Discussed with the patient.
Need to follow-up with CT angiogram after 1 year
Acute metabolic encephalopathy
UA, no sign of UTI
Could be contributed by hyponatremia.
Improved
Less likely Warnicke encephalopathy
Started on thiamine
Hyponatremia
Improved.
Discontinue IV fluid
History of hypothyroidism
Continue levothyroxine
History of depression.
Continue Zoloft
Transaminitis
Alcohol pattern
Improved
Microcytic anemia
Monitor hemoglobin
Mild metabolic acidosis
Improved
CODE STATUS: Full code
DVT prophylaxis: Lovenox
Diet: Regular diet-
Disposition: Discharge home today
Total time spent on today's encounter was 52 minutes which included time spent in counseling the patient/family regarding diagnosis and treatment plan as listed above, goals of care, and symptom management. Case was discussed with nursing staff,
specialists, and care coordinators/case management. All labs and imaging personally reviewed by me. Remainder the time spent in detailed review of previous records, lab data, imaging, and other medical provider documentation.
Anticipated Discharge: Today
Subjective/Interval History
-
Date of Service: December 09, 2024
Patient seen and examined at bedside, denies any chest pain or shortness of breath, no abdominal pain, no nausea, no vomiting, no diarrhea or constipation.
Objective Data
-
Labs:
Laboratory Results
12/09/24
06:23
WBC 4.7 L
Hgb 10.4 L
Hct 32.9 L
Plt Count 376
Sodium 138
Potassium 3.7
Chloride 103
Carbon Dioxide 29
BUN 11
Creatinine 0.6
Glucose 72
Calcium 8.8
Vital Signs:
Vital Signs
Temp Pulse Resp BP Pulse Ox
97.6 F 70 18 143/74 97
12/09/24 11:00 12/09/24 11:00 12/09/24 11:00 12/09/24 11:00 12/09/24 11:00
I&O
12/08/24 12/09/24 12/10/24
06:59 06:59 06:59
Intake Total 480 / 480 2480 / 2480
Output Total 1999
Balance 480 / 480 480 / 480
Physical Exam
-
General: Well Developed, Well Nourished, No Apparent Distress and Comfortable
HEENT: Normocephalic, Atraumatic, Moist Mucous Membranes, No Ptosis, PERRLA and Nose Appears Normal
Respiratory: Clear to Auscultation and Non Labored Respirations
Cardiac: Regular Rhythm and S1/S2
Breast: Deferred by me
GI: Soft, Nontender, Nondistended and Normal Bowel Sounds
Genito-urinary: No Costovertebral Tender
Musculoskeletal: No Clubbing, No Cyanosis and No Edema
Skin: Warm
Neuro: Awake, Alert, Oriented, AO x 3 and No Motor Deficits
Psych: Calm
--- NOTE | 2024-12-09 14:12 | W.DCSUMMARY ---
Discharge Summary
Discharge Data
Date of Admission: 12/07/24
Date of Discharge: 12/09/24
Total time spent discharging patient (in min): 40
-
Pending Results: No
Hospital Course
Hospital course
Patient is 59 years old with history of alcohol use who presented to the ER with chest pain and shortness of breath.
Patient with history of daily alcohol use, currently she consume 2 cases of beer daily (24 Bottles), started having chest pain which she described as chest pressure, midsternal, no radiation, 3 hours before ER visit, also feeling confused. Patient
with significant alcohol abuse history, relapsed for the last 1 month. no cardiac history, no smoking.
Father had coronary artery disease but he was heavy smoking, mother diagnosed with congestive heart failure.
Patient noted to have hyponatremia at 126,, negative troponin x 2.
CTA chest showed:
Mild to moderate respiratory motion artifact limiting evaluation of the inferior segmental and subsegmental pulmonary arteries. Given this limitation, there is no evidence for pulmonary embolism.
Calcified mass within the medial aspect of the right lower lobe of the lung, as described above. This is without significant interval change in size dating back to CT examination 2006, reassuring that this is a benign calcified pulmonary mass.
There are 2 splenic artery aneurysms in the left upper quadrant. The largest of these has diameter of 2.1 cm. Follow-up CT angiography of the abdomen with attention to the splenic artery is recommended in one year.
Focal pleural plaque involving the posterior aspect of the right lower hemithorax, slightly increasing since examination in 2006. With minimal enlargement over a timeframe of 18 years, this very likely represents a benign pleural plaque.
Patient admitted for hyponatremia, chest pain, alcohol withdrawal.
Seen by cardiology, received 1 dose of Lasix.
Echocardiogram shows:
1. Normal left ventricular size and function
2. Ejection fraction is 65-70% by volumetric assesment.
3. Right ventricular size and systolic function are within normal limits.
4. Indexed left atrial volume is mildly abnormal (35-41 ml/m2).
5. Mildly thickened trileaflet aortic valve with mild aortic stenosis - Peak gradient 31mmHg/Mean gradient 18mmHg - using an left ventricular outflow tract of 1.8cm the estimated aortic valve area is 1.5cm2.
6. Trace tricuspid regurgitation. Estimated pulmonary artery pressure of 34 mmHg assuming a right atrial pressure of 3 mmHg.
7. There are no prior studies available for comparison.
Patient will discharge home to follow-up with cardiology as outpatient for ischemic workup.
No need for diuretics at discharge.
During hospitalization patient was treated from the following
Chest pain R/O ACS
Patient presented to the ER with chest pain/shortness of breath.
Troponin came back at <0.012
EKG done in the ER shows no acute ischemic change
Started baby aspirin, hold statin for elevated LFTs
Trend troponin
Check fasting lipid panel
Cardiology consult.
12/08
Seen by cardiology.
Troponin remains negative.
Currently chest pain-free.
Received 1 dose of Lasix
Echocardiogram shows:
1. Normal left ventricular size and function
2. Ejection fraction is 65-70% by volumetric assesment.
3. Right ventricular size and systolic function are within normal limits.
4. Indexed left atrial volume is mildly abnormal (35-41 ml/m2).
5. Mildly thickened trileaflet aortic valve with mild aortic stenosis - Peak gradient 31mmHg/Mean gradient 18mmHg - using an left ventricular outflow tract of 1.8cm the estimated aortic valve area is 1.5cm2.
6. Trace tricuspid regurgitation. Estimated pulmonary artery pressure of 34 mmHg assuming a right atrial pressure of 3 mmHg.
7. There are no prior studies available for comparison.
12/09
Discharged off diuretics
Alcohol abuse/withdrawal
Patient admitted drinking 2 dozens of beer daily.
Alcohol level 46
Fine tremors on physical exam.
IV fluid.
Thiamine/folic acid.
Ativan as needed.
Splenic artery aneurysm.
Seen on CT scan.
Discussed with the patient.
Need to follow-up with CT angiogram after 1 year
Acute metabolic encephalopathy
UA, no sign of UTI
Could be contributed by hyponatremia.
Improved
Less likely Warnicke encephalopathy
Started on thiamine
Hyponatremia
Improved.
Discontinue IV fluid
History of hypothyroidism
Continue levothyroxine
History of depression.
Continue Zoloft
Transaminitis
Alcohol pattern
Improved
Microcytic anemia
Monitor hemoglobin
Mild metabolic acidosis
Improved
CODE STATUS: Full code
DVT prophylaxis: Lovenox
Diet: Regular diet-
Disposition: Discharge home today
Total time spent on today's encounter was 40 minutes which included time spent in counseling the patient/family regarding diagnosis and treatment plan as listed above, goals of care, and symptom management. Case was discussed with nursing staff,
specialists, and care coordinators/case management. All labs and imaging personally reviewed by me. Remainder the time spent in detailed review of previous records, lab data, imaging, and other medical provider documentation.
Anticipated Discharge: Today
Discharge Plan
-
Patient Disposition: Home (Routine Discharge)
Discharge Diagnosis/Procedures: Chest pain.
Hyponatremia.
Alcohol withdrawal
Diet: Regular
Specialty Instructions: Weigh Daily- Call MD for wt gain/loss 3 lbs overnight/5 lbs in 1 week
Stand Alone Forms: Return to Work
Referrals:
Indiana Olsen MD [Family Provider, Family Practice]
Joaquim Neumann MD [Active, Cardiology] - in three to four weeks
Additional Discharge Medication Instructions: Need to repeat CT angiogram of abdomen and pelvis after 1 year for splenic artery aneurysm
Prescriptions:
New
folic acid 1 mg Tablet
1 mg PO DAILY Qty: 0 0RF
hydroxyzine HCl 25 mg Tablet
25 mg PO QIDPRN PRN (Reason: Anxiety) 30 Days Qty: 90 0RF
aripiprazole 10 mg Tablet
10 mg PO DAILY Qty: 0 0RF
sertraline 100 mg Tablet
100 mg PO DAILY Qty: 0 0RF
levothyroxine 88 mcg Tablet
88 mcg PO DAILY @ 0600 Qty: 0 0RF
Continued
Bariatric Melts
Bariatric Vitamins
Iron
Magnesium
Tumeric
milk thistle
Discharge Orders:
Discharge Patient (As Directed); Ordered 12/09/24
Ordered By: Jet Pa
Discharge Date and Time
Print Language: CITIZEN OF [place]
== END 2024-12-09 14:47 | disposition home health service (06) | DRG 896 ==
LOC: 4 WEST ACU 18:07
PROVIDERS: Emergency Medicine; ADMITTING PHYSICIAN General Practice; CONSULT PHYSICIAN Internal Medicine Cardiovascular Disease; EMERGENCY PHYSICIAN Emergency Medicine; FAMILY PHYSICIAN Student in an Organized Health Care Education/Training Program
DX: F10.139 Alcohol abuse with withdrawal, unspecified (principal); G93.41 Metabolic encephalopathy; I50.31 Acute diastolic (congestive) heart failure; E87.1 Hypo-osmolality and hyponatremia; E87.20 Acidosis, unspecified; Z68.41 Body mass index [BMI] 40.0-44.9, adult; R07.89 Other chest pain; I89.0 Lymphedema, not elsewhere classified; E03.9 Hypothyroidism, unspecified; F32.A Depression, unspecified; R74.01 Elevation of levels of liver transaminase levels; D50.9 Iron deficiency anemia, unspecified; E66.9 Obesity, unspecified; F41.9 Anxiety disorder, unspecified; I72.8 Aneurysm of other specified arteries; Y90.2 Blood alcohol level of 40-59 mg/100 ml; Z86.711 Personal history of pulmonary embolism; Z79.890 Hormone replacement therapy; Z79.899 Other long term (current) drug therapy
CPT/HCPCS: 71275; 80048; 80053; 80061; 81003; 81015; 82077; 82977; 83690; 83735; 83880; 83930; 83935; 84300; 84443; 84484; 85025; 85027; 87086; 93005; 93306; 96374; 96375; 96376; 99285; Q9967

== ENCOUNTER 2025-01-09 15:48 | Emergency (ER) | payer BC, SELFPAY ==
[2025-01-09 16:09] VITALS: BP 143/88
[2025-01-09 16:31] LABS: Hematocrit 35.0 % (37.0-47.0); Hemoglobin 10.6 g/dL (12.0-16.0); Mean Corp Hgb Conc. 30.3 g/dL (33.0-37.0); Mean Corpuscular Volume 77.1 fL (81.0-99.0); Nucleated Red Blood Cells % 0 %; Platelet Count 449 10^3/uL (130-400); Red Cell Dist. Width 17.4 % (11.5-14.5)
[2025-01-09 16:39] LABS: APTT 24.1 Sec (23.4-35.0); INR 1.01; PT 13.6 Sec (11.4-14.6)
[2025-01-09 16:45] LABS: ALT (SGPT) 20 U/L (0-35); AST (SGOT) 30 U/L (14-36); Albumin 4.4 g/dl (3.5-5.0); Alkaline Phosphatase 114 U/L (38-126); Blood Urea Nitrogen 9 mg/dl (7-17); Calcium 9.4 mg/dl (8.4-10.2); Carbon Dioxide 27 mmol/L (22-30); Chloride 103 mmol/L (98-107); Glucose 119 mg/dl (70-99); Potassium 4.2 mmol/L (3.5-5.1); Sodium 134 mmol/L (135-145); Total Protein 7.4 g/dl (6.3-8.2); eGFR > 60.00
[2025-01-09 16:56] LABS: Troponin I < 0.012 ng/ml
[2025-01-09 17:09] VITALS: BMI 46.4
[2025-01-09 17:16] VITALS: BP 149/83
--- NOTE | 2025-01-09 17:31 | ED.GENMED ---
History of Present Illness
General
Chief Complaint: Chest Pain
Source: patient
Exam Limitations: none
Time Seen by Provider: 01/09/25 17:25
Nursing documentation reviewed up to this point in time: agreed with
History of Present Illness
History of Present Illness:
Patient is a 59-year-old female with history of hypertension heart murmur presents to the ER for evaluation. Patient was driving 30 minutes prior to arrival and suddenly felt chest pressure shortness of breath left arm numbness. This did feel
similar to her panic attacks but she was unsure if it was her heart and presented to the ER. She gets panic attacks once a month. She is on no medicines for this. She tells me they simply she has no known cardiac history. She does not smoke.
She does report that she had previous PE in 2003 without a known cause. She is currently asymptomatic and this does not feel like her previous PE.
Phy Exam
General Physical Exam
General Presentation: no apparent distress
General age: appears stated age
General Skin: warm and dry
General Habitus: normal
General Mental: alert
General Hydration: appears well hydrated
Cardiovascular Exam
Cardiovascular Exam: regular rate/rhythm, normal peripheral pulses and systolic murmur
Pulmonary Exam
Pulmonary Exam: lungs clear and no respiratory distress
Neurological Exam
Neurological Exam: alert and oriented x3
Musculoskeletal Exam
Musculoskeletal Exam: full ROM
Skin Exam
Skin Exam: normal color and warm/dry
Psychiatric Exam
Psychiatric Exam: normal mood/affect
Scores
Heart Score for Chest Pain Patients
STEMI patient?: Not applicable
Course
Orders/Labs/Results
Orders:
Orders
01/09/25 15:50
Electrocardiogram (*1) Urgent
Reason for Study: Chest Pain
EKG- Treatment ONCE
01/09/25 16:13
Chest [CR Chest - 2 Views ] Urgent
Comment:
Reason For Exam: chest pain
01/09/25 16:20
Complete Blood Count/With Diff Urgent
Comprehensive Metabolic Panel Urgent
PT/INR [Prothrombin Time] Urgent
PTT Urgent
Troponin I Urgent
Abnormal Lab Results
01/09/25
16:20
Hgb 10.6 L g/dL
(12.0-16.0)
Hct 35.0 L %
(37.0-47.0)
MCV 77.1 L fL
(81.0-99.0)
MCH 23.3 L pg
(27.0-31.0)
MCHC 30.3 L g/dL
(33.0-37.0)
RDW 17.4 H %
(11.5-14.5)
Plt Count 449 H 10^3/uL
(130-400)
Absolute Neuts (auto) 7.5 H 10^3/uL
(1.4-6.5)
Neutrophils % 78.5 H %
(42.2-75.2)
Lymphocytes % 13.2 L %
(20.5-51.1)
Sodium 134 L mmol/L
(135-145)
Glucose 119 H mg/dl
(70-99)
01/09/25 16:20
01/09/25 16:20
Vital Signs
Initial and Last Documented VS:
Initial Vital Signs
Temp Pulse Resp BP Pulse Ox
98.1 F 82 18 143/88 95
01/09/25 16:09 01/09/25 16:09 01/09/25 16:09 01/09/25 16:09 01/09/25 16:09
Last Documented Vital Signs
Temp Pulse Resp BP Pulse Ox
98.1 F 86 12 149/83 97
01/09/25 16:09 01/09/25 17:16 01/09/25 17:16 01/09/25 17:16 01/09/25 17:41
MDM/Problems Addressed
Differential Diagnosis Includes:
Not limited to panic attack, ACS less likely less likely
MDM/Problems Addressed:
Patient presents to the ER complaining of an episode of chest pain shortness of breath and left arm numbness which lasted for 1 [address] She felt that it might be her panic attack/anxiety and presented to the ER to rule out any cardiac
issues. She does not have a history cardiac disease. She has a history of PE in 2003 with however is no longer on blood thinners. She currently is asymptomatic she denies any shortness of breath or chest pain. She is very well-appearing EKG.
Cardiac troponin negative. She is in no acute distress nontachycardic nontachypneic.
With patient being asymptomatic unlikely PE at this time. Will keep for second troponin and plan to discharge with cardiac hotline. Case reviewed ED
Pt wants to go home and does not want to wait for second troponin she test.
She feels her symptoms were her panic attack.
She is Asymptomatic here in the ER will discharge home.
*Radiology
Radiology exam reviewed: preliminary read by ED provider ([facility] )
*Pulse Oximetry
SaO2: 97
Oxygen Mode of Delivery: Room air
Patient hypoxic: no
*EKG
Interpreted by ED Provider?: Yes
Heart Rate: 84
Rate: normal
Rhythm: sinus
Ischemia: no ischemia
*Critical Care Note
Total Time (30-74mins, 75-104mins- exclusive of procedures): Not Applicable
ED Attending Note
-
Portions of this chart may have been created with voice recognition software.� Occasional wrong word or��sound alike� substitutions may have occurred due to the inherent limitations of voice recognition software.
Discharge Plan
Departure
Patient Disposition: Home (Routine Discharge)
Date of Disposition: 01/09/25
Time of Disposition: 18:08
Patient with high blood pressure during this ER visit?: Yes
Condition: Fair
Covid-19: Not Applicable
Discharge Problem:
Chest pain
Instructions: Chest Pain DCA Follow Up, BLOOD PRESSURE
Prescriptions:
No Action
Bariatric Melts
Bariatric Vitamins
Iron
Magnesium
Tumeric
milk thistle
folic acid 1 mg Tablet
1 mg PO DAILY Qty: 0 0RF
hydroxyzine HCl 25 mg Tablet
25 mg PO QIDPRN PRN (Reason: Anxiety) 30 Days Qty: 90 0RF
aripiprazole 10 mg Tablet
10 mg PO DAILY Qty: 0 0RF
sertraline 100 mg Tablet
100 mg PO DAILY Qty: 0 0RF
levothyroxine 88 mcg Tablet
88 mcg PO DAILY @ 0600 Qty: 0 0RF
Referrals:
UNKNOWN - PT DOES,NOT KNOW [Family Provider]
Activity Restrictions/Additional Instructions:
As discussed your workup was negative here in the ER.
follow-up with cardiology.
You were placed on the hotline.
you should receive a phone call from the office in the next several days . do not please give the office a call to schedule an appointment.
Interventions
Interventions:
*Risk Screen - Suicide Last Done: 01/09/25 16:09
*General Assessment Last Done: 01/09/25 16:09
*Neglect/Abuse Screening Last Done: 01/09/25 17:09
*ED- Fall Risk Assessment Last Done: 01/09/25 17:09
*ED COVID-19 Vaccine History Last Done: 01/09/25 17:09
*ED Influenza Vaccine History Last Done: 01/09/25 17:09
ED- Cardiac Assessment Last Done: 01/09/25 17:09
Discharge Date and Time
Print Language: FRISIAN
== END 2025-01-09 18:15 | disposition home or self-care (01) ==
LOC: EMR 15:48
PROVIDERS: EMERGENCY PHYSICIAN Student in an Organized Health Care Education/Training Program
DX: R07.89 Other chest pain (principal); R06.02 Shortness of breath; R20.0 Anesthesia of skin; Z86.711 Personal history of pulmonary embolism
CPT/HCPCS: 99285; 71046; 80053; 84484; 85025; 85610; 85730; 93005

== ENCOUNTER 2025-01-16 11:20 | Emergency (ER) | payer BC, SELFPAY ==
[2025-01-16 11:24] VITALS: BP 145/87
[2025-01-16 11:25] VITALS: BP 145/87
[2025-01-16 11:31] VITALS: BMI 46.4
[2025-01-16 11:41] LABS: Hematocrit 32.9 % (37.0-47.0); Hemoglobin 10.4 g/dL (12.0-16.0); Mean Corp Hgb Conc. 31.6 g/dL (33.0-37.0); Mean Corpuscular Volume 72.0 fL (81.0-99.0); Nucleated Red Blood Cells % 0 %; Platelet Count 364 10^3/uL (130-400); Red Cell Dist. Width 17.2 % (11.5-14.5)
--- NOTE | 2025-01-16 11:44 | ED.GENMED ---
History of Present Illness
General
Chief Complaint: Chest Pain
Source: patient
Exam Limitations: none
Time Seen by Provider: 01/16/25 11:43
History of Present Illness
History of Present Illness:
59-year-old female relatively sudden onset of chest pain to the left shoulder. Started about 2 hours ago. Still has some symptoms. The nurse at work heard something funny which prompted her to have ER evaluation. No pleuritic pain no back pain
no shearing pain history of similar episodes in the past.
Past History
Past History
ED Past Medical History: HTN, Hypothyroidism, Other (Hyponatremia), Other (Heart murmur) and Other (Pulmonary emboli)
ED Past Surgical History: and Other (Gastric bypass. Pleurodesis)
Review of Systems
Review of Systems
All Other Systems: Not applicable
Constitutional: Denies fever
Respiratory: Denies hemoptysis or trouble breathing
ABD/GI: Reports no symptoms
Phy Exam
Physical Exam
Physical Exam:
GENERAL: Alert and oriented in no apparent distress
EYE: Orbits normal.
NECK: Supple
CARDIAC: Regular rate and rhythm with mild midsystolic murmur
LUNGS: Clear breath sounds,normal
ABDOMEN: Soft, without focal tenderness or distention
NEUROLOGICAL: Alert and oriented , grossly non-focal
SKIN: Warm and dry, no rash or lesion, no discoloration, skin intact.
MUSCULOSKELETAL: No edema,no deformity.Good color
PSYCH: Normal and appropriate interaction. Anxious
Course
Orders/Labs/Results
Orders:
Orders
01/16/25 11:22
Electrocardiogram (*1) Urgent
Reason for Study: Chest Pain
EKG- Treatment ONCE
01/16/25 11:32
Complete Blood Count/With Diff Urgent
Comprehensive Metabolic Panel Urgent
Troponin I Urgent
01/16/25 12:03
D-Dimer Urgent
01/16/25 12:46
CT Chest PE Study Urgent
Comment:
Reason For Exam: cp/pos dimer
01/16/25 12:47
US Periph Venous LOWER Ext Shin Urgent
Comment:
Reason For Exam: Chest pain/positive dimer
01/16/25 14:39
Electrocardiogram (*1) Stat
Reason for Study: Other
Other Reason for Exam: chest pain
EKG- Treatment ONCE
01/16/25 14:57
Troponin I Urgent
01/16/25 15:12
Alprazolam [Xanax] 0.5 mg PO NOW STA
Abnormal Lab Results
01/16/25 01/16/25
11:32 12:03
WBC 12.5 H 10^3/uL
(4.8-10.8)
Hgb 10.4 L g/dL
(12.0-16.0)
Hct 32.9 L %
(37.0-47.0)
MCV 72.0 L fL
(81.0-99.0)
MCH 22.8 L pg
(27.0-31.0)
MCHC 31.6 L g/dL
(33.0-37.0)
RDW 17.2 H %
(11.5-14.5)
Abs Immat Gran (auto) 0.1 H 10^3/uL
(0-0.05)
Absolute Neuts (auto) 10.6 H 10^3/uL
(1.4-6.5)
Absolute Lymphs (auto) 1.1 L 10^3/uL
(1.2-3.4)
Absolute Monos (auto) 0.7 H 10^3/uL
(0.1-0.6)
Neutrophils % 84.5 H %
(42.2-75.2)
Lymphocytes % 8.4 L %
(20.5-51.1)
D-Dimer 4.86 H ug/mlFEU
(0.00-0.50)
Sodium 133 L mmol/L
(135-145)
Glucose 100 H mg/dl
(70-99)
Alkaline Phosphatase 138 H U/L
(38-126)
01/16/25 11:32
01/16/25 11:32
Vital Signs
Initial and Last Documented VS:
Initial Vital Signs
Temp Pulse Resp BP Pulse Ox
98.6 F 92 16 145/87 98
01/16/25 11:24 01/16/25 11:24 01/16/25 11:24 01/16/25 11:24 01/16/25 11:24
Last Documented Vital Signs
Temp Pulse Resp BP Pulse Ox
98.6 F 83 16 125/71 95
01/16/25 11:24 01/16/25 16:00 01/16/25 16:13 01/16/25 16:00 01/16/25 15:30
MDM/Problems Addressed
Differential Diagnosis Includes:
Patient with ongoing nonexertional midsternal chest discomfort. EKG stable. Low suspicion for cardiac issue. Recent workup in the hospital was stable. She does have a slight midsystolic murmur. Remote history of PE. Highly doubt PE. But with
history we will do a D-dimer. Patient very anxious
*Pulse Oximetry
SaO2: 97
Oxygen Mode of Delivery: Room air
Patient hypoxic: no
*EKG
Interpreted by ED Provider?: Yes
Interpretation: abnormal
Comparison EKG: no changes
Heart Rate: 83
Rate: normal
Rhythm: sinus and PVC's
Cory: left axis deviation
Interval: normal interval
QRS Pattern: normal QRS
Ischemia: non-specific ST changes
Data Reviewed
Review of Other/Old Records Reveals: Labs, Records, Testing, Discharge Summary and Other (Cardiac consult)
Update Note
Update Note:
Patient with chronic clot. And superficial thrombophlebitis. Plan is repeat cardiac testing for completeness. I expect this to be negative. If the pulmonary emboli study is positive she stays for PE. If negative she will be discharged. Then
the question becomes management of chronic DVT. I lean towards 2.5 of Eliquis twice daily low-dose anticoagulation. We are contacting hematology for their opinion.
01/17/25... 1999... Message left for patient to call. I would just like to review her CT findings for follow-up.
ED Attending Note
-
Portions of this chart may have been created with voice recognition software.� Occasional wrong word or��sound alike� substitutions may have occurred due to the inherent limitations of voice recognition software.
Discharge Plan
Departure
Patient Disposition: Home (Routine Discharge)
Date of Disposition: 01/16/25
Time of Disposition: 16:55
Patient with high blood pressure during this ER visit?: No
Condition: Good
Discharge Problem:
Chest pain
Instructions: Chest Pain PCP Follow Up
Prescriptions:
No Action
Bariatric Melts
Bariatric Vitamins
Iron
Magnesium
Tumeric
milk thistle
folic acid 1 mg Tablet
1 mg PO DAILY Qty: 0 0RF
hydroxyzine HCl 25 mg Tablet
25 mg PO QIDPRN PRN (Reason: Anxiety) 30 Days Qty: 90 0RF
aripiprazole 10 mg Tablet
10 mg PO DAILY Qty: 0 0RF
sertraline 100 mg Tablet
100 mg PO DAILY Qty: 0 0RF
levothyroxine 88 mcg Tablet
88 mcg PO DAILY @ 0600 Qty: 0 0RF
Referrals:
NONE,* [Family Provider, Internal Medicine]
Interventions
Interventions:
*Risk Screen - Suicide Last Done: 01/16/25 11:28
*General Assessment Last Done: 01/16/25 11:28
*Neglect/Abuse Screening Last Done: 01/16/25 11:28
*ED- Fall Risk Assessment Last Done: 01/16/25 11:28
*ED COVID-19 Vaccine History Last Done: 01/16/25 11:27
*ED Influenza Vaccine History Last Done: 01/16/25 11:27
*Nursing Disposition Last Done: 01/16/25 16:58
ED- Cardiac Assessment Last Done: 01/16/25 11:37
Discharge Date and Time
Discharge Date/Time: 01/16/25 17:00
Print Language: SENEGALESE
[2025-01-16 11:54] LABS: ALT (SGPT) 17 U/L (0-35); AST (SGOT) 27 U/L (14-36); Albumin 4.2 g/dl (3.5-5.0); Alkaline Phosphatase 138 U/L (38-126); Blood Urea Nitrogen 12 mg/dl (7-17); Calcium 9.0 mg/dl (8.4-10.2); Carbon Dioxide 27 mmol/L (22-30); Chloride 99 mmol/L (98-107); Estimated Creatinine Clearance -11 ml/min; Glucose 100 mg/dl (70-99); Potassium 4.2 mmol/L (3.5-5.1); Sodium 133 mmol/L (135-145); Total Protein 7.2 g/dl (6.3-8.2); eGFR > 60.00
[2025-01-16 12:05] LABS: Troponin I < 0.012 ng/ml
[2025-01-16 12:37] LABS: D-Dimer 4.86 ug/mlFEU (0.00-0.50)
[2025-01-16 14:06] VITALS: BP 144/86
[2025-01-16] MEDS: XANAX 0.5 MG PO (15:18)
[2025-01-16 15:34] LABS: Troponin I < 0.012 ng/ml
[2025-01-16 15:48] VITALS: BP 134/73
[2025-01-16 16:00] VITALS: BP 125/71
== END 2025-01-16 17:00 | disposition home or self-care (01) ==
LOC: EMR 11:20
PROVIDERS: EMERGENCY PHYSICIAN Emergency Medicine
DX: R07.89 Other chest pain (principal); I82.531 Chronic embolism and thrombosis of right popliteal vein; I82.812 Embolism and thrombosis of superficial veins of left lower extremity; M25.512 Pain in left shoulder; I10 Essential (primary) hypertension; E03.9 Hypothyroidism, unspecified; Z98.84 Bariatric surgery status; Z86.711 Personal history of pulmonary embolism; I49.3 Ventricular premature depolarization
CPT/HCPCS: 99284; 71275; 80053; 84484; 85025; 85379; 93005; 93970; Q9967